=== PATIENT | male | born 1960 | race Hispanic/Latino ===

== ENCOUNTER 2017-01-19 23:02 | Emergency (ER) | payer SELFPAY | END 2017-01-20 07:40 | disposition left against medical advice (07) | LOC: ED 23:02 | DX: Z02.89 Encounter for other administrative examinations (principal); F10.10 Alcohol abuse, uncomplicated ==

== ENCOUNTER 2017-02-24 16:43 | Inpatient (IN) | payer MEDICAID, OTHER ==
[2017-02-24 16:46] VITALS: BMI 32.1
[2017-02-24 17:33] LABS: ADD MANUAL DIFF? NO
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
[2017-02-24 17:46] LABS: BASO # 0.01 K/mm3 (0.0-2.0); BASO % 0.1 % (0.0-3.0); EOS % 0.1 % (1.5-5.0); GRAN # 4.52 (1.4-6.5); GRAN % 64.2 % (50.0-68.0); LYMPH % 28.5 % (22.0-35.0); MEAN CELL VOLUME 94.6 fL (80.0-105.0); MEAN CORPUSCULAR HEMOGLOBIN 32.7 pg (25.0-35.0); MEAN CORPUSCULAR HGB CONC 34.5 g/dl (31.0-37.0); MEAN PLATELET VOLUME 10.4 fl (7.0-11.0); MONO # 0.5 (0.1-0.6); MONO % 7.1 % (1.0-6.0); PLATELET COUNT 123 10^3/uL (120.0-450.0); RED CELL DISTRIBUTION WIDTH 13.2 % (11.5-14.5); WHITE BLOOD COUNT 7.1 10^3/ul (4.5-11.0)
[2017-02-24 17:52] LABS: ALB/GLOB RATIO 1.2 (1.1-1.8); ALKALINE PHOSPHATASE 101 U/L (38-133); ALT/SGPT 74 U/L (7-56); AST/SGOT 71 U/L (15-59); BILIRUBIN,TOTAL 1.6 mg/dL (0.2-1.3); BLOOD UREA NITROGEN 12 mg/dL (7-21); CALCIUM 9.5 mg/dL (8.4-10.5); CARBON DIOXIDE 21 mmol/L (21-33); CHLORIDE 98 mmol/L (98-107); GFR AFRICAN-AMERICAN > 60; GLUCOSE,RANDOM 133 mg/dL (70-110); MAGNESIUM 1.8 mg/dL (1.7-2.2); PHOSPHOROUS 3.6 mg/dL (2.5-4.5); POTASSIUM 3.2 mmol/L (3.6-5.0); SODIUM 135 mmol/L (132-148); TOTAL PROTEIN 8.2 g/dL (5.8-8.3)
[2017-02-24 17:53] LABS: INR 1.06 (0.93-1.08)
[2017-02-24 18:03] LABS: TROPONIN I < 0.01 ng/mL
[2017-02-24] MEDS ORDERED: Potassium Chloride 20 mEq ER Tab PO STA (18:20)
[2017-02-24 19:10] LABS: PH,URINE 5.5 (4.7-8.0); URINE APPEARANCE SL CLOUDY (CLEAR); URINE BILIRUBIN NEGATIVE (NEGATIVE); URINE BLOOD MODERATE (NEGATIVE); URINE COLOR YELLOW (YELLOW); URINE GLUCOSE (UA) NEGATIVE (NEGATIVE); URINE KETONE 40 mg/dL (NEGATIVE); URINE LEUKOCYTE ESTERASE NEGATIVE Leu/uL (NEGATIVE); URINE PROTEIN 100 mg/dL (<30 mg/dL); URINE UROBILINOGEN 0.2 E.U./dL (<1 E.U./dL)
[2017-02-24 19:20] LABS: URINE WBC 0 - 2 /hpf (0-6)
[2017-02-24 19:21] LABS: URINE BACTERIA MOD (NEG); URINE EPITHELIAL CELLS 0 - 2 /hpf (0-5)
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
[2017-02-24] MEDS ORDERED: Morphine 4 mg/ml ISec IVP STA ×2 (20:19→22:10)
[2017-02-24] MEDS ORDERED: oxyCODONE 5 mg Immediate Release Tab PO PRN (22:10)
[2017-02-24] MEDS ORDERED: Morphine 2 mg/ml ISec IVP PRN (22:11)
[2017-02-24] MEDS ORDERED: Magnesium Sulfate 2 GM in Sodium Chloride 0.9% 100 ML IVPB ONE (22:15)
[2017-02-24] MEDS ORDERED: Sodium Chloride 0.45% 1,000 ML IV SCH (22:30)
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
[2017-02-25 06:03] LABS: ADD MANUAL DIFF? NO
[2017-02-25 06:35] LABS: ALB/GLOB RATIO 1.3 (1.1-1.8); ALKALINE PHOSPHATASE 62 U/L (38-133); ALT/SGPT 67 U/L (7-56); AST/SGOT 53 U/L (15-59); BILIRUBIN,TOTAL 1.2 mg/dL (0.2-1.3); BLOOD UREA NITROGEN 10 mg/dL (7-21); CALCIUM 8.7 mg/dL (8.4-10.5); CARBON DIOXIDE 27 mmol/L (21-33); CHLORIDE 99 mmol/L (95-110); GFR AFRICAN-AMERICAN > 60; GLUCOSE,RANDOM 106 mg/dL (70-110); POTASSIUM 4.1 mmol/L (3.6-5.0); SODIUM 131 mmol/L (132-148); TOTAL PROTEIN 6.5 g/dL (5.8-8.3)
[2017-02-25 06:41] LABS: BASO # 0.01 K/mm3 (0.0-2.0); BASO % 0.1 % (0.0-3.0); GRAN # 8.17 (1.4-6.5); GRAN % 87.1 % (50.0-68.0); HEMATOCRIT 39.2 % (42.0-52.0); LYMPH # 0.7 (1.2-3.4); LYMPH % 7.9 % (22.0-35.0); MEAN CELL VOLUME 92.7 fL (80.0-105.0); MEAN CORPUSCULAR HEMOGLOBIN 32.2 pg (25.0-35.0); MEAN CORPUSCULAR HGB CONC 34.7 g/dl (31.0-37.0); MEAN PLATELET VOLUME 10.4 fl (7.0-11.0); MONO # 0.5 (0.1-0.6); MONO % 4.9 % (1.0-6.0); PLATELET COUNT 91 10^3/uL (120.0-450.0); RED CELL DISTRIBUTION WIDTH 13.5 % (11.5-14.5); WHITE BLOOD COUNT 9.4 10^3/ul (4.5-11.0)
[2017-02-25] MEDS: Pantoprazole 40 mg EC Tab PO SCH (08:21)
--- NOTE | 2017-02-25 08:45 | RAD ---
PROCEDURE: CHEST RADIOGRAPH, 1 VIEW HISTORY: cough COMPARISON: 10/26/2015 FINDINGS: LUNGS: Clear. PLEURA: No pneumothorax or pleural fluid seen. CARDIOVASCULAR: Normal. OSSEOUS STRUCTURES: No significant abnormalities. VISUALIZED UPPER ABDOMEN: Normal. OTHER FINDINGS: None. IMPRESSION: No active disease.
[2017-02-25] MEDS ORDERED: Multivitamin With Minerals Tab PO SCH (10:00)
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
--- NOTE | 2017-02-25 13:23 | CARD ---
APPROVED REPORT EKG Measurement Heart [id number] <Conclusion> Normal sinus rhythm with 1st degree AVB Left axis deviation, LAHB Right bundle branch block Trifasicular block
--- NOTE | 2017-02-25 18:35 | EEG ---
DATE: 02/25/2017 CONDITION ON RECORDING: Awake. DIAGNOSIS: Seizure. MEDICATIONS: Reviewed via nurse's reconciliation sheet. INTERPRETATION: This is a 16-channel international recording. The background activity was composed of 6-7 cycles per second. There was increased amount of beta activity of 16-20 cycles per second see n in this recording. There was also increased amount of theta activity 5-7 cycles per second seen in this tracing. Drowsiness was characterized by mixed theta activity. The sleep was characterized by vertex transient waves, sleep spindles and bilateral slowing. Photic stimulation showed no change i n the tracing. No paroxysmal activity noted in this recording. CONCLUSION: Abnormal electroencephalogram due to presence of mild diffuse slowing throughout the EEG with underlying beta activity consistent with mild bilateral cerebral dysfunction. No evidence of a ny epileptiform activity. Please clinically correlate. Guevara Worthington MD cc: [id number] TT: 02/25/2017 18:35:06 Confirmation # [id number] Dictation # [id number] dn
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
[2017-02-25] MEDS: THIAMINE IV SCH (21:06)
[2017-02-25] MEDS: FOLIC ACID IV SCH (21:06)
[2017-02-25] MEDS: [UNRECOGNIZED DRUG - OTHER] IV SCH (21:06)
[2017-02-25] MEDS: MULTIVITAMIN IV SCH (21:06)
[2017-02-26] MEDS: MULTIVITAMIN IV SCH ×2 (05:30→18:41)
[2017-02-26] MEDS: THIAMINE IV SCH ×2 (05:30→18:41)
[2017-02-26] MEDS: FOLIC ACID IV SCH ×2 (05:30→18:41)
[2017-02-26] MEDS: [UNRECOGNIZED DRUG - OTHER] IV SCH ×2 (05:30→18:41)
[2017-02-26 07:40] LABS: HEMATOCRIT 40.7 % (42.0-52.0); MEAN CELL VOLUME 93.3 fL (80.0-105.0); MEAN CORPUSCULAR HEMOGLOBIN 32.1 pg (25.0-35.0); MEAN CORPUSCULAR HGB CONC 34.4 g/dl (31.0-37.0); MEAN PLATELET VOLUME 9.8 fl (7.0-11.0); RED CELL DISTRIBUTION WIDTH 13.6 % (11.5-14.5); WHITE BLOOD COUNT 5.3 10^3/ul (4.5-11.0)
[2017-02-26 07:53] LABS: ALB/GLOB RATIO 1.1 (1.1-1.8); ALKALINE PHOSPHATASE 55 U/L (38-133); ALT/SGPT 50 U/L (7-56); AST/SGOT 48 U/L (15-59); BILIRUBIN,TOTAL 1.4 mg/dL (0.2-1.3); BLOOD UREA NITROGEN 9 mg/dL (7-21); CALCIUM 8.8 mg/dL (8.4-10.5); CARBON DIOXIDE 25 mmol/L (21-33); CHLORIDE 103 mmol/L (95-110); GFR AFRICAN-AMERICAN > 60; GLUCOSE,RANDOM 87 mg/dL (70-110); POTASSIUM 3.4 mmol/L (3.6-5.0); SODIUM 135 mmol/L (132-148); TOTAL PROTEIN 7.2 g/dL (5.8-8.3)
[2017-02-26] MEDS: Pantoprazole 40 mg EC Tab PO SCH (08:45)
--- NOTE | 2017-02-26 09:22 | CARD ---
APPROVED REPORT EXAM: Two-dimensional and M-mode echocardiogram with Doppler and color Doppler. Other Information Quality : AverageRhythm : INDICATION Syncope 2D DIMENSIONS Left Atrium (2D)4.0 (1.6-4.0cm)IVSd1.1 (0.7-1.1cm) LVDd4.9 (3.9-5.9cm)PWd1.1 (0.7-1.1cm) LVDs3.4 (2.5-4.0cm)FS (%) 30.6 % LVEF (%)57.0 (>50%) M-Mode DIMENSIONS Aortic Root3.10 (2.2-3.7cm)Aortic Cusp Exc.1.90 (1.5-2.0cm) Aortic Valve AoV Peak Ocqfywqf727.0cm/s Mitral Valve MV E Aqxmgwof51.8cm/sMV A Oputangc20.3cm/sE/A ratio0.8 TDI E/Lateral E'0.0E/Medial E'0.0 Tricuspid Valve TR Peak Rzwtvati113qi/sRAP [id number] Peak Gr.6mmHg [id number] LEFT VENTRICLE The left ventricle is normal size. There is normal left ventricular wall thickness. The left ventricular function is normal. The left ventricular ejection fraction is within the normal range. There is normal LV segmental wall motion. RIGHT VENTRICLE The right ventricle is normal size. AORTIC VALVE The aortic valve is normal in structure. There is trace aortic regurgitation. MITRAL VALVE The mitral valve is normal in structure. Mitral regurgitation is trace. TRICUSPID VALVE The tricuspid valve is normal in structure. There is mild tricuspid regurgitation. PULMONIC VALVE The pulmonic valve is not well visualized. GREAT VESSELS The aortic root is normal in size. PERICARDIAL EFFUSION There is no pericardial effusion. <Conclusion> The left ventricle is normal size. There is normal left ventricular wall thickness. The left ventricular function is normal.
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
--- NOTE | 2017-02-27 01:12 | CP.PCM.PN ---
Subjective - Date & Time of Evaluation Date of Evaluation: 02/27/17 Time of Evaluation: 01:11 - Subjective Subjective: # 20 angiocath was inserted in left forearm. Dx:Poor venous access. Objective - Vital Signs/Intake and Output Vital Signs (last 24 hours): Temp Pulse Resp BP Pulse Ox 98.2 F 94 H 18 121/89 94 L 02/26/17 12:00 02/26/17 22:00 02/26/17 12:00 02/26/17 12:00 02/26/17 07:05 Intake and Output: 02/26/17 02/27/17 18:59 06:59 Intake Total 2260 Output Total 1900 Balance 360 - Medications Medications: Current Medications Famotidine (Pepcid) 40 mg PO HS [facility] Thiamine HCl 100 mg/ Folic Acid 1 mg/ Multivitamins/Vitamin C 10 ml/ Sodium Chloride 1,011.2 mls @ 100 mls/hr IV .Q10H7M [facility] Last Admin: 02/26/17 18:41 Dose: Not Given Lorazepam (Ativan) 2 mg PO QID [facility] PRN Reason: Protocol Last Admin: 02/26/17 22:25 Dose: 2 mg Lorazepam (Ativan) 2 mg IVP Q6H PRN; Protocol PRN Reason: alcohol withdrawal/agitation Last Admin: 02/26/17 22:45 Dose: 2 mg Morphine Sulfate (Morphine) 2 mg IVP Q4 PRN PRN Reason: Pain, severe (8-10) Last Admin: 02/25/17 02:17 Dose: 2 mg Nicotine (Nicoderm Cq) 1 patch TD DAILY [facility] Last Admin: 02/26/17 11:13 Dose: 1 patch Oxycodone HCl (Oxycodone Immediate Release Tab) 5 mg PO Q4 PRN PRN Reason: Pain, moderate (4-7) Quetiapine Fumarate (Seroquel) 50 mg PO [facility] PRN Reason: Protocol Last Admin: 02/26/17 21:27 Dose: 50 mg Ziprasidone (Geodon Inj) 10 mg IM Q8H PRN; Protocol PRN Reason: Agitation/psychosis Last Admin: 02/26/17 22:46 Dose: 10 mg - Labs Labs: 02/26/17 07:00 02/26/17 07:00 PT 11.4 Seconds (9.9-11.8) 02/24/17 17:00 INR 1.06 (0.93-1.08) 02/24/17 17:00 APTT 27.0 Seconds (23.7-30.8) 02/24/17 17:00
[2017-02-27] MEDS: THIAMINE IV SCH ×6 (02:03→23:49)
[2017-02-27] MEDS: [UNRECOGNIZED DRUG - OTHER] IV SCH ×6 (02:03→23:49)
[2017-02-27] MEDS: FOLIC ACID IV SCH ×6 (02:03→23:49)
[2017-02-27] MEDS: MULTIVITAMIN IV SCH ×6 (02:03→23:49)
[2017-02-27 06:51] LABS: ALB/GLOB RATIO 1.1 (1.1-1.8); ALKALINE PHOSPHATASE 57 U/L (38-133); ALT/SGPT 48 U/L (7-56); AST/SGOT 49 U/L (15-59); BILIRUBIN,TOTAL 1.4 mg/dL (0.2-1.3); BLOOD UREA NITROGEN 9 mg/dL (7-21); CALCIUM 9.4 mg/dL (8.4-10.5); CARBON DIOXIDE 26 mmol/L (21-33); CHLORIDE 103 mmol/L (98-107); GFR AFRICAN-AMERICAN > 60; GLUCOSE,RANDOM 96 mg/dL (70-110); POTASSIUM 3.7 mmol/L (3.6-5.0); SODIUM 136 mmol/L (132-148); TOTAL PROTEIN 7.4 g/dL (5.8-8.3)
[2017-02-27 07:00] LABS: HEMATOCRIT 42.8 % (42.0-52.0); MEAN CELL VOLUME 93.4 fL (80.0-105.0); MEAN CORPUSCULAR HEMOGLOBIN 32.8 pg (25.0-35.0); MEAN PLATELET VOLUME 10.2 fl (7.0-11.0); RED CELL DISTRIBUTION WIDTH 13.6 % (11.5-14.5); WHITE BLOOD COUNT 5.7 10^3/ul (4.5-11.0)
--- NOTE | 2017-02-27 09:27 | CP.PCM.PCO ---
Addendum Addendum: Patient sedated at time of visit this morning. He had a difficult night and required prns for agitation. Staff notes indicate he was restless, verbally abusive, trying to climb out of bed and disoriented. He refused vitals and initially refused IV insertion. Based on these staff notes, patient clearly appears delirious. Psychiatry will continue to assess his mental status along with his medical team.
--- NOTE | 2017-02-27 10:19 | MRI ---
PROCEDURE: MR LUMBAR SPINE WITHOUT CONTRAST HISTORY: compression fracture COMPARISON: None available. TECHNIQUE: Multiecho multiplanar sequences were performed through the lumbar spine without the use of intravenous contrast. Somewhat limited evaluation due to artifact from patient motion. FINDINGS: There is straightening of the normal lumbar lordosis likely from muscle spasm or patient positioning. Compressive deformities particularly of the superior endplates of T12, L3, L4 and L5 noted. Stir images demonstrate acute bone marrow edema in these levels. There is a small retropulsed component posterior to the L4 vertebral body. Disc desiccation involving L1-L2, L2-L3, L3-4. Heterogeneous marrow signal. Conus medullaris unremarkable at the level of L1. Paraspinal soft tissues are unremarkable. T12-L1: No disc herniation, spinal canal stenosis or neural foraminal narrowing. L1-2: Broad-based posterior disc herniation. Superimposed facet and ligamentum flavum hypertrophy has mildly narrowed bilateral neural foramen. L2-3: Small broad-based posterior disc herniation with mild narrowing of the lateral recesses. L3-4: Concentric disc bulge. Significantly narrowed the spinal canal. Superimposed facet and ligamentum flavum hypertrophy has lead to moderate to severe narrowing of bilateral neural foramen. L4-5: Facet and ligamentum flavum hypertrophy has lead to severe narrowing of the spinal canal. (suboptimal evaluation at this level due to extensive patient motion.) L5-S1: Mild posterior broad-based disc bulge. Mild narrowing of the neural foramen bilaterally. OTHER FINDINGS: Heterogeneous bone marrow edema in bilateral sacral ala. IMPRESSION: Acute compression fractures involving T12, L3, L4 and L5 with bone marrow edema. Other degenerative changes as above. Please note that this report is in general agreement with the preliminary report provided by [facility].
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
[2017-02-28 07:14] LABS: MEAN CELL VOLUME 94.3 fL (80.0-105.0); MEAN CORPUSCULAR HGB CONC 33.9 g/dl (31.0-37.0); MEAN PLATELET VOLUME 9.8 fl (7.0-11.0); RED CELL DISTRIBUTION WIDTH 13.6 % (11.5-14.5); WHITE BLOOD COUNT 5.2 10^3/ul (4.5-11.0)
[2017-02-28 07:31] LABS: ALKALINE PHOSPHATASE 56 U/L (38-133); ALT/SGPT 48 U/L (7-56); AST/SGOT 46 U/L (15-59); BILIRUBIN,TOTAL 1.1 mg/dL (0.2-1.3); BLOOD UREA NITROGEN 9 mg/dL (7-21); CARBON DIOXIDE 26 mmol/L (21-33); CHLORIDE 104 mmol/L (98-107); GFR AFRICAN-AMERICAN > 60; GLUCOSE,RANDOM 103 mg/dL (70-110); POTASSIUM 3.5 mmol/L (3.6-5.0); SODIUM 138 mmol/L (132-148); TOTAL PROTEIN 7.1 g/dL (5.8-8.3)
[2017-02-28] MEDS ORDERED: Potassium Chloride 20 mEq ER Tab PO ONE (07:47)
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
[2017-02-28] MEDS: Multivitamin With Minerals Tab PO SCH (10:56)
--- NOTE | 2017-02-28 12:19 | MRI ---
PROCEDURE: MR THORACIC SPINE WITHOUT CONTRAST HISTORY: compression fracture COMPARISON: MRI of the lumbar spine same day TECHNIQUE: Multiecho multiplanar sequences were performed through the thoracic spine without the use of intravenous contrast. FINDINGS: ALIGNMENT: Normal thoracic spinal alignment. Normal thoracic kyphosis. VERTEBRA: There is a mild compression fracture with marrow edema at T12. There are no other fractures seen in the thoracic spine MARROW: Marrow edema T12 PARASPINAL SOFT TISSUES: Unremarkable. CORD: Unremarkable thoracic cord. No volume loss, signal abnormality or syrinx. DISCS: No disc herniation, spinal canal stenosis, or neuroforaminal narrowing. OTHER FINDINGS: The report concurs with the preliminary [facility] report IMPRESSION: Mild acute compression fracture T12
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
[2017-03-01 08:19] LABS: ADD MANUAL DIFF? NO
[2017-03-01 08:23] LABS: BASO # 0.01 K/mm3 (0.0-2.0); BASO % 0.2 % (0.0-3.0); EOS # 0.1 (0.0-0.7); EOS % 2.7 % (1.5-5.0); GRAN % 53.2 % (50.0-68.0); HEMATOCRIT 42.7 % (42.0-52.0); LYMPH # 1.4 (1.2-3.4); LYMPH % 28.5 % (22.0-35.0); MEAN CELL VOLUME 93.8 fL (80.0-105.0); MEAN CORPUSCULAR HEMOGLOBIN 32.5 pg (25.0-35.0); MEAN CORPUSCULAR HGB CONC 34.7 g/dl (31.0-37.0); MEAN PLATELET VOLUME 9.6 fl (7.0-11.0); MONO # 0.8 (0.1-0.6); MONO % 15.4 % (1.0-6.0); PLATELET COUNT 133 10^3/uL (120.0-450.0); RED CELL DISTRIBUTION WIDTH 13.7 % (11.5-14.5); WHITE BLOOD COUNT 4.9 10^3/ul (4.5-11.0)
[2017-03-01 08:39] LABS: ALB/GLOB RATIO 1.1 (1.1-1.8); ALKALINE PHOSPHATASE 63 U/L (38-133); ALT/SGPT 48 U/L (7-56); AST/SGOT 42 U/L (15-59); BILIRUBIN,TOTAL 1.2 mg/dL (0.2-1.3); BLOOD UREA NITROGEN 11 mg/dL (7-21); CALCIUM 9.6 mg/dL (8.4-10.5); CARBON DIOXIDE 26 mmol/L (21-33); CHLORIDE 101 mmol/L (98-107); GFR AFRICAN-AMERICAN > 60; GLUCOSE,RANDOM 99 mg/dL (70-110); POTASSIUM 3.9 mmol/L (3.6-5.0); SODIUM 136 mmol/L (132-148); TOTAL PROTEIN 7.5 g/dL (5.8-8.3)
[2017-03-01] MEDS: Multivitamin With Minerals Tab PO SCH (09:21)
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
[2017-03-02 07:16] LABS: ADD MANUAL DIFF? NO
[2017-03-02 07:31] LABS: BASO # 0.02 K/mm3 (0.0-2.0); BASO % 0.3 % (0.0-3.0); EOS # 0.1 (0.0-0.7); EOS % 1.7 % (1.5-5.0); GRAN # 3.44 (1.4-6.5); GRAN % 58.6 % (50.0-68.0); HEMATOCRIT 43.1 % (42.0-52.0); LYMPH # 1.4 (1.2-3.4); LYMPH % 24.3 % (22.0-35.0); MEAN CELL VOLUME 92.7 fL (80.0-105.0); MEAN CORPUSCULAR HEMOGLOBIN 32.3 pg (25.0-35.0); MEAN CORPUSCULAR HGB CONC 34.8 g/dl (31.0-37.0); MONO # 0.9 (0.1-0.6); MONO % 15.1 % (1.0-6.0); PLATELET COUNT 154 10^3/uL (120.0-450.0); RED CELL DISTRIBUTION WIDTH 13.5 % (11.5-14.5); WHITE BLOOD COUNT 5.9 10^3/ul (4.5-11.0)
[2017-03-02 07:36] LABS: ALB/GLOB RATIO 1.1 (1.1-1.8); ALKALINE PHOSPHATASE 63 U/L (38-133); ALT/SGPT 49 U/L (7-56); AST/SGOT 45 U/L (15-59); BILIRUBIN,TOTAL 1.1 mg/dL (0.2-1.3); BLOOD UREA NITROGEN 12 mg/dL (7-21); CALCIUM 9.7 mg/dL (8.4-10.5); CARBON DIOXIDE 28 mmol/L (21-33); CHLORIDE 101 mmol/L (98-107); GFR AFRICAN-AMERICAN > 60; GLUCOSE,RANDOM 99 mg/dL (70-110); SODIUM 136 mmol/L (132-148); TOTAL PROTEIN 7.5 g/dL (5.8-8.3)
[2017-03-02] MEDS: Multivitamin With Minerals Tab PO SCH (09:14)
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
[2017-03-02 20:03] VITALS: BP 115/81; PULSE 95; RESP 18; TEMP 97.7; O2SAT 96
[2017-03-04 13:19] LABS: ALB/GLOB RATIO 1.1 (1.1-1.8); BILIRUBIN,TOTAL 1.1 mg/dL (0.2-1.3); BLOOD UREA NITROGEN 13 mg/dL (7-21); CALCIUM 9.7 mg/dL (8.4-10.5); CARBON DIOXIDE 27 mmol/L (21-33); CHLORIDE 100 mmol/L (98-107); GFR AFRICAN-AMERICAN > 60; GLUCOSE,RANDOM 91 mg/dL (70-110); SODIUM 136 mmol/L (132-148); TOTAL PROTEIN 7.6 g/dL (5.8-8.3)
[2017-03-04 13:20] LABS: ALKALINE PHOSPHATASE 69 U/L (38-133); ALT/SGPT 53 U/L (7-56); AST/SGOT 72 U/L (15-59)
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
[2017-03-04 16:20] LABS: HEMATOCRIT 43.1 % (42.0-52.0); MEAN CELL VOLUME 92.7 fL (80.0-105.0); MEAN CORPUSCULAR HEMOGLOBIN 32.5 pg (25.0-35.0); RED CELL DISTRIBUTION WIDTH 13.3 % (11.5-14.5); WHITE BLOOD COUNT 5.4 10^3/ul (4.5-11.0)
== END 2017-03-03 16:20 | disposition home or self-care (01) | DRG 561 ==
LOC: ED 16:43 → ERH 21:55 → 2RNO 02-25 01:39 → 3RNO 02-28 18:19
PROVIDERS: ADMIT Hospitalist; ATTEND Internal Medicine
DX: M48.54XA Collapsed vertebra, not elsewhere classified, thoracic region, initial encounter for fracture (principal); R40.20 Unspecified coma; F10.231 Alcohol dependence with withdrawal delirium; F05 Delirium due to known physiological condition; R56.9 Unspecified convulsions; M48.04 Spinal stenosis, thoracic region; M48.56XA Collapsed vertebra, not elsewhere classified, lumbar region, initial encounter for fracture; E87.6 Hypokalemia; M48.06 Spinal stenosis, lumbar region; G89.29 Other chronic pain; F17.210 Nicotine dependence, cigarettes, uncomplicated; R40.2412 Glasgow coma scale score 13-15, at arrival to emergency department; R55 Syncope and collapse; V43.02XA Car driver injured in collision with other type car in nontraffic accident, initial encounter; Y92.410 Unspecified street and highway as the place of occurrence of the external cause

== ENCOUNTER 2017-04-25 16:25 | Inpatient (IN) | payer MEDICAID, OTHER ==
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
[2017-04-25 18:08] LABS: BASO # 0.01 K/mm3 (0.0-2.0); BASO % 0.2 % (0.0-3.0); EOS # 0.1 (0.0-0.7); EOS % 1.1 % (1.5-5.0); GRAN # 3.25 (1.4-6.5); GRAN % 57.5 % (50.0-68.0); HEMOGLOBIN 13.7 gm/dL (14.0-18.0); LYMPH # 1.9 (1.2-3.4); LYMPH % 32.9 % (22.0-35.0); MEAN CELL VOLUME 92.7 fL (80.0-105.0); MEAN CORPUSCULAR HEMOGLOBIN 32.2 pg (25.0-35.0); MEAN CORPUSCULAR HGB CONC 34.7 g/dl (31.0-37.0); MEAN PLATELET VOLUME 10.1 fl (7.0-11.0); MONO # 0.5 (0.1-0.6); MONO % 8.3 % (1.0-6.0); PLATELET COUNT 176 10^3/uL (120.0-450.0); RBC 4.26 10^6/uL (3.5-6.1); RED CELL DISTRIBUTION WIDTH 13.5 % (11.5-14.5); WHITE BLOOD COUNT 5.7 10^3/ul (4.5-11.0)
[2017-04-25 18:24] LABS: ALB/GLOB RATIO 1.3 (1.1-1.8); ALBUMIN 3.7 g/dL (3.0-4.8); ALT/SGPT 32 U/L (7-56); AST/SGOT 30 U/L (15-59); BLOOD UREA NITROGEN 7 mg/dL (7-21); CALCIUM 9.7 mg/dL (8.4-10.5); GFR AFRICAN-AMERICAN > 60; GFR NON-AFRICAN AMERICAN > 60
--- NOTE | 2017-04-25 19:33 | CARD ---
APPROVED REPORT EKG Measurement Heart [id number] <Conclusion> Normal sinus rhythm Right bundle branch block Abnormal ECG
[2017-04-26 01:04] VITALS: BMI 24.8
--- NOTE | 2017-04-26 08:18 | RAD ---
PROCEDURE: Radiographs of the pelvis. HISTORY: leg pain, unable to ambulate COMPARISON: None. FINDINGS: BONES: Pelvic Bones: Unremarkable. Hips: Severe degenerative changes are seen in the left hip with joint space narrowing bony sclerosis and osteophyte formation. There is a variation in the shape of the femoral neck bilaterally which is associated with femoro acetabular impingement JOINTS: Sacroiliac Joints: Unremarkable. Pubic Symphysis: Unremarkable. OTHER FINDINGS: None. IMPRESSION: Severe degenerative changes are seen in the left hip with joint space narrowing bony sclerosis and osteophyte formation. There is a variation in the shape of the femoral neck bilaterally which is associated with femoro acetabular impingement
--- NOTE | 2017-04-26 08:22 | RAD ---
HISTORY: ambulation failure COMPARISON: No prior. FINDINGS: LUNGS: No active pulmonary disease. PLEURA: No significant pleural effusion identified, no pneumothorax apparent. CARDIOVASCULAR: Normal. OSSEOUS STRUCTURES: No significant abnormalities. VISUALIZED UPPER ABDOMEN: Normal. OTHER FINDINGS: None. IMPRESSION: No active disease.
--- NOTE | 2017-04-26 08:22 | RAD ---
PROCEDURE: Radiographs of the bilateral femurs. HISTORY: leg pain, unable to ambulate COMPARISON: None. FINDINGS: BONES: Right Femur: Normal. No fracture. Left Femur: Normal. No fracture. SOFT TISSUES: Right Femur: Normal. Left Femur: Normal. OTHER FINDINGS: Severe degenerative changes in the left hip. IMPRESSION: No acute finding
[2017-04-26 09:12] LABS: ALB/GLOB RATIO 1.2 (1.1-1.8); ALBUMIN 3.4 g/dL (3.0-4.8); ALT/SGPT 31 U/L (7-56); AST/SGOT 27 U/L (15-59); BLOOD UREA NITROGEN 8 mg/dL (7-21); CALCIUM 9.5 mg/dL (8.4-10.5); GFR AFRICAN-AMERICAN > 60; GFR NON-AFRICAN AMERICAN > 60; MAGNESIUM 1.7 mg/dL (1.7-2.2)
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
[2017-04-27] MEDS ORDERED: Gadodiamide 287 MG/ML VIAL (15ML) IV ONE (10:55)
--- NOTE | 2017-04-27 13:47 | MRI ---
PROCEDURE: MR LUMBAR SPINE WITH AND WITHOUT CONTRAST HISTORY: lumbar raiduclopathy COMPARISON: 02/26/2017 TECHNIQUE: Multiecho multiplanar sequences were performed through the lumbar spine with and without the use of intravenous contrast. FINDINGS: Normal lumbar lordosis. Vertebral compression fractures with marrow edema and enhancement are again identified at T12, L4 and L5. Conus medullaris unremarkable at the level of Paraspinal soft tissues are unremarkable. No abnormal enhancement. T12-L1: No disc herniation, spinal canal stenosis or neural foraminal narrowing. L1-2: Mild to moderate disc bulge L2-3: Moderate symmetrical disc bulge L3-4: Disc bulge and facet arthropathy with severe central stenosis. Image 28 series 7 L4-5: Disc bulge and facet arthropathy with severe spinal stenosis. Image 8 series 6 L5-S1: Mild facet arthropathy OTHER FINDINGS: None. IMPRESSION: Recent compression fractures at T12-L4 and L5 with marrow edema and enhancement. Findings similar to prior study. Severe spinal stenosis at L3-4 and L4-5
--- NOTE | 2017-04-27 14:11 | CP.PCM.PCO ---
Assessment & Plan - Assessment and Plan (Free Text) Assessment: NEURO COMMUNICATION NOTE: MRI LS SPINE REVIEWED: HE HAS COMPRESSION FRACTURES T12, L3, L4 and L5 SIMILAR TO PREVIOUS MRI LS SPINE ON 03/02 AND NOW WITH SERVERE SPINAL STENOSIS AT L3-L4, L4-5. RECOMMEND: LYRICA 75 MG PO TID FOR NEUROPATHIC RELIEF, PHYSICAL THERAPY, [facility], AND NEUROSURGICAL EVALUATION FOR SEVERE SPINAL STENOSIS DUE TO WEAKNESS OF HIS LEGS FROM RADICULAR PAIN.. THX. [place]
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
[2017-04-28] MEDS: Morphine 2 mg/ml ISec IVP PRN ×2 (06:49→19:47)
[2017-04-28] MEDS ORDERED: Multivitamin With Minerals Tab PO SCH (08:00)
[2017-04-28 08:55] LABS: ALBUMIN (PEP) 3.2 g/dL (3.8-4.8); ALPHA-1-GLOBULIN (PEP) 0.3 g/dL (0.2-0.3)
[2017-04-28 09:34] LABS: HEMOGLOBIN 14.1 gm/dL (14.0-18.0); MEAN CELL VOLUME 95.3 fL (80.0-105.0); MEAN CORPUSCULAR HEMOGLOBIN 31.6 pg (25.0-35.0); MEAN CORPUSCULAR HGB CONC 33.2 g/dl (31.0-37.0); RBC 4.46 10^6/uL (3.5-6.1); RED CELL DISTRIBUTION WIDTH 13.8 % (11.5-14.5); WHITE BLOOD COUNT 5.4 10^3/ul (4.5-11.0)
[2017-04-28 09:44] LABS: ALB/GLOB RATIO 1.3 (1.1-1.8); ALT/SGPT 31 U/L (7-56); AST/SGOT 26 U/L (15-59); BLOOD UREA NITROGEN 7 mg/dL (7-21); CALCIUM 9.9 mg/dL (8.4-10.5); GFR AFRICAN-AMERICAN > 60; GFR NON-AFRICAN AMERICAN > 60
--- NOTE | 2017-04-28 13:45 | CP.PCM.CON ---
History of Present Illness - History of Present Illness History of Present Illness: SPINE CONSULT Pt seen and examined. Full consult dictated. Rec decompressive laminectomy to alleviate severe spinal stenosis. Tent sched for tomorrow. Past Patient History - Infectious Disease Hx of Infectious Diseases: None - Past Social History Smoking Status: Current Some Days Smoker - NEUROLOGICAL Hx Seizures: Yes - MUSCULOSKELETAL/RHEUMATOLOGICAL Hx Falls: Yes Hx Unsteady Gait: Yes - PSYCHIATRIC Hx Substance Use: No - SURGICAL HISTORY Hx Joint Replacement: Yes (KNEE REPLACEMENT) - ANESTHESIA Hx Anesthesia: Yes Hx Anesthesia Reactions: No Hx Malignant Hyperthermia: No Meds Allergies/Adverse Reactions: Allergies Allergy/AdvReac Type Severity Reaction Status Date / Time No Known Allergies Allergy Verified 10/08/15 21:13 - Medications Medications: Current Medications Famotidine (Pepcid) 40 mg PO HS PRN PRN Reason: GI distress Folic Acid (Folic Acid) 1 mg PO DAILY [facility] Last Admin: 04/28/17 09:14 Dose: 1 mg Morphine Sulfate (Morphine) 2 mg IVP Q4H PRN PRN Reason: Pain, severe (8-10) Last Admin: 04/28/17 06:49 Dose: 2 mg Multivitamins/Minerals (Therapeutic-M Tab) 1 tab PO 0800 [facility] Last Admin: 04/28/17 09:14 Dose: 1 tab Pregabalin (Lyrica) 75 mg PO TID [facility] Last Admin: 04/28/17 09:14 Dose: 75 mg Thiamine HCl (Vitamin B1 Tab) 100 mg PO DAILY [facility] Last Admin: 04/28/17 09:14 Dose: 100 mg Results - Vital Signs Recent Vital Signs: Last Vital Signs Temp 97.8 F 04/28/17 08:33 Pulse 59 L 04/28/17 08:33 Resp 18 04/28/17 08:33 BP 93/64 L 04/28/17 08:33 Pulse Ox 98 04/28/17 08:33 - Labs Result Diagrams: 04/28/17 09:29 04/28/17 09:29 Labs: Laboratory Results - last 24 hr 04/27/17 04/28/17 04/28/17 06:00 09:29 09:29 WBC 5.4 RBC 4.46 Hgb 14.1 Hct 42.5 MCV 95.3 MCH 31.6 MCHC 33.2 RDW 13.8 Plt Count 183 MPV 10.0 Sodium 140 Potassium 4.1 Chloride 100 Carbon Dioxide 31 Anion Gap 13 BUN 7 Creatinine 0.7 Est GFR ( Amer) > 60 Est GFR (Non-Af Amer) > 60 Random Glucose 111 H Calcium 9.9 Total Bilirubin 0.8 AST 26 ALT 31 Alkaline Phosphatase 60 Total Protein 7.1 Total Protein (PEP) 5.7 L Albumin 4.0 Albumin (PEP) 3.2 L Globulin 3.1 Albumin/Globulin Ratio 1.3 Neqxd-1-Sxanbellh 0.3 Zonbj-1-Vwrcvblrq 0.6 Zude-9-Jonblnnr 0.3 L Ntgm-1-Macosnso 0.3 Gamma Globulins 0.9 Abnorm Protein Band 1 TEST NOT PERFORMED Abnorm Protein Band 2 TEST NOT PERFORMED Abnorm Protein Band 3 TEST NOT PERFORMED KRYSTAL & SPEP Interp See note
--- NOTE | 2017-04-28 14:58 | CARD ---
APPROVED REPORT EXAM: Two-dimensional and M-mode echocardiogram with Doppler and color Doppler. INDICATION Pre-Op 2D DIMENSIONS Left Atrium (2D)3.7 (1.6-4.0cm)IVSd1.0 (0.7-1.1cm) Aortic Root (2D)3.2 (2.0-3.7cm)LVDd5.2 (3.9-5.9cm) PWd0.9 (0.7-1.1cm)LVDs2.8 (2.5-4.0cm) FS (%) 45.1 %LVEF (%)76.1 (>50%) M-Mode DIMENSIONS Aortic Cusp Exc.2.50 (1.5-2.0cm) Aortic Valve AoV Peak Chungtih357.0cm/Lakia Peak GR.5mmHgAI P 1/2 Lipz718la Mitral Valve MV E Kytkszsq84.7cm/sMV A Jotqnkoj07.6cm/sE/A ratio1.0 TDI Lateral E' Peak V7.12cm/sMedial E' Peak V8.19cm/sE/Lateral E'12.7 E/Medial E'11.1 Pulmonary Valve PV Peak Iihgfgpe24.7cm/sPV Peak Grad.2mmHg LEFT VENTRICLE The left ventricle is normal size. There is mild concentric left ventricular hypertrophy. The left ventricular function is normal.EF-55% There is mild hypokinesis in the apical inferior wall. Transmitral Doppler flow pattern is Grade II-pseudonormal filling dynamics. No left ventricle thrombus noted on this study. There is no ventricular septal defect visualized. There is no left ventricular aneurysm. There is no mass noted in the left ventricle. RIGHT VENTRICLE The right ventricle is normal size. There is normal right ventricular wall thickness. The right ventricular systolic function is normal. ATRIA The left atrium size is normal. The right atrium size is normal. The interatrial septum is intact with no evidence for an atrial septal defect. AORTIC VALVE The aortic valve is thickened but opens well. There is mild to moderate aortic regurgitation. There is no aortic valvular stenosis. There is no aortic valvular vegetation. MITRAL VALVE The mitral valve is thickened but opens well. Mitral regurgitation is mild. There is no mitral valve stenosis. There is no evidence of mitral valve prolapse. TRICUSPID VALVE The tricuspid valve leaflets are thickened , but open well. There is trace tricuspid regurgitation. There is no tricuspid valve stenosis. There is no tricuspid valve prolapse or vegetation. PULMONIC VALVE The pulmonary valve is normal in structure. There is no pulmonic valvular regurgitation. There is no pulmonic valvular stenosis. GREAT VESSELS The aortic root is normal in size. The ascending aorta is normal in size. The pulmonary artery is normal. The IVC is normal in size and collapses >50% with inspiration. PERICARDIAL EFFUSION There is no pleural effusion. There is no pericardial effusion. <Conclusion> Normal chamber Size. EF-55% There is mild to moderate aortic regurgitation. Mitral regurgitation is mild. There is trace tricuspid regurgitation. There is no pericardial effusion. No vegetation or thrombus noted.
[2017-04-28 15:40] LABS: INR 1.03 (0.93-1.08); PARTIAL THROMBOPLASTIN TIME 25.9 Seconds (23.7-30.8); PROTHROMBIN TIME 11.1 Seconds (9.9-11.8)
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
[2017-04-29] MEDS ORDERED: Bacitracin 500 Units/gm Oint Foilpak UD ONE (07:31)
[2017-04-29] MEDS ORDERED: Lidocaine 1%/Epinephrine 1:100000 30 ml vial ONE (07:32)
[2017-04-29] MEDS ORDERED: Absorbable Gelatin Sponge Size 100 ONE (07:32)
[2017-04-29] MEDS ORDERED: Heparin 10,000 Units/ml ONE (07:32)
[2017-04-29] MEDS ORDERED: Thrombin Topical 20,000 Intl Units Spray Kit TOP ONE (07:33)
[2017-04-29] MEDS ORDERED: Propofol 10 mg/ml Inj (20 ML) ONE ×2 (07:38→09:17)
[2017-04-29] MEDS ORDERED: Midazolam 2 MG/2 ML VIAL ONE (07:38)
[2017-04-29] MEDS ORDERED: Rocuronium 10 mg/ml (5 ml) ONE (07:42)
[2017-04-29 07:59] LABS: HEMOGLOBIN 13.3 gm/dL (14.0-18.0); MEAN CELL VOLUME 95.2 fL (80.0-105.0); MEAN CORPUSCULAR HEMOGLOBIN 31.8 pg (25.0-35.0); MEAN CORPUSCULAR HGB CONC 33.4 g/dl (31.0-37.0); MEAN PLATELET VOLUME 10.5 fl (7.0-11.0); RBC 4.18 10^6/uL (3.5-6.1); RED CELL DISTRIBUTION WIDTH 13.8 % (11.5-14.5); WHITE BLOOD COUNT 5.1 10^3/ul (4.5-11.0)
[2017-04-29 08:08] LABS: ALB/GLOB RATIO 1.3 (1.1-1.8); ALBUMIN 3.8 g/dL (3.0-4.8); ALT/SGPT 28 U/L (7-56); AST/SGOT 28 U/L (15-59); BLOOD UREA NITROGEN 13 mg/dL (7-21); CALCIUM 9.7 mg/dL (8.4-10.5); GFR AFRICAN-AMERICAN > 60; GFR NON-AFRICAN AMERICAN > 60
[2017-04-29] MEDS ORDERED: Sevoflurane - Inhalation Anesthetic Liq (250 ml) ONE (08:44)
[2017-04-29] MEDS ORDERED: Neostigmine Methylsulfate 3mg/3ml Syringe IV ONE (09:37)
[2017-04-29] MEDS ORDERED: Lidocaine 1%/Epinephrine 1:100000 30 ml vial IJ ONE (09:50)
[2017-04-29] MEDS ORDERED: Sodium Chloride 0.9% 1,000 ML IV SCH (10:00)
--- NOTE | 2017-04-29 10:26 | PCM.SURG1 ---
Surgeon's Initial Post Op Note - Surgeon's Notes Surgeon: adeel Weighter: [email or web address] Type of Anesthesia: General Endo Pre-Operative Diagnosis: spinal stenosis Operative Findings: severe stenosis Post-Operative Diagnosis: same Operation Performed: decompressive laminectomy L3-5 Specimen/Specimens Removed: none Estimated Blood Loss: EBL {In ML}: 150 Blood Products Given: N/A Drains Used: No Drains Post-Op Condition: Good Date of Surgery/Procedure: 04/29/17 Time of Surgery/Procedure: 08:30
[2017-04-29] MEDS ORDERED: HYDROmorphone 0.5 mg/0.5 ml ISec ONE ×3 (10:30→11:06)
[2017-04-29] MEDS: HYDROmorphone 0.5 mg/0.5 ml ISec IVP PRN ×4 (10:31→11:05)
--- NOTE | 2017-04-29 12:33 | RAD ---
PROCEDURE: Fluoroscopy HISTORY: LAMINECTOMY L3-L5 COMPARISON: None TECHNIQUE: Standard protocol for this study/examination. FINDINGS: Submitted images from the current procedure: 2.0 IMPRESSION: Total fluoroscopic time (continuous mode) utilized during the procedure: 10 seconds
[2017-04-29] MEDS: HYDROmorphone 0.2 mg/ml (25ml) 25 ML IV PRN ×2 (13:17→19:42)
[2017-04-29] MEDS: Potassium Ch 20mEq in D5-1/2NS 1,000 ML IV SCH (16:13)
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
[2017-04-30] MEDS: Potassium Ch 20mEq in D5-1/2NS 1,000 ML IV SCH ×2 (03:00→20:40)
[2017-04-30] MEDS: HYDROmorphone 0.2 mg/ml (25ml) 25 ML IV PRN (06:51)
[2017-04-30 07:48] LABS: HEMOGLOBIN 13.1 gm/dL (14.0-18.0); MEAN CELL VOLUME 92.8 fL (80.0-105.0); MEAN CORPUSCULAR HEMOGLOBIN 31.5 pg (25.0-35.0); MEAN CORPUSCULAR HGB CONC 33.9 g/dl (31.0-37.0); MEAN PLATELET VOLUME 10.2 fl (7.0-11.0); RBC 4.16 10^6/uL (3.5-6.1); RED CELL DISTRIBUTION WIDTH 13.6 % (11.5-14.5); WHITE BLOOD COUNT 8.3 10^3/ul (4.5-11.0)
[2017-04-30 07:58] LABS: ALB/GLOB RATIO 1.2 (1.1-1.8); ALBUMIN 3.9 g/dL (3.0-4.8); ALT/SGPT 34 U/L (7-56); AST/SGOT 41 U/L (15-59); BLOOD UREA NITROGEN 11 mg/dL (7-21); CALCIUM 9.6 mg/dL (8.4-10.5); GFR AFRICAN-AMERICAN > 60; GFR NON-AFRICAN AMERICAN > 60
--- NOTE | 2017-04-30 12:49 | CP.PCM.PN ---
Subjective - Date & Time of Evaluation Date of Evaluation: 04/30/17 Time of Evaluation: 12:45 - Subjective Subjective: SPINE - POD #1 Pt sitting on edge of bed. States he amb earlier. Thinks his legs feel a little better. Evidently was thrashing about and somewhat confused earlier so have d/c' d HEADING AND PRIMING TOOL SETTER. Voiding. + flatus. VSS. Afebrile. Incision clean and dry w ecchymosis at sup end and around it. Neuro grossly intact. Plan: Reg diet. Mobilize as tolerated. Oral analgesics. Hopeful rehab placement Tuesday. Objective - Vital Signs/Intake and Output Vital Signs (last 24 hours): Temp Pulse Resp BP Pulse Ox 98.6 F 90 19 117/79 94 L 04/30/17 07:57 04/30/17 07:57 04/30/17 07:57 04/30/17 07:57 04/30/17 07:57 Intake and Output: 04/30/17 04/30/17 06:59 18:59 Intake Total 50 180 Output Total 700 1200 Balance -650 -1020 - Medications Medications: Current Medications Docusate Sodium (Colace) 100 mg PO BID [facility] Last Admin: 04/30/17 09:16 Dose: 100 mg Famotidine (Pepcid) 40 mg PO HS PRN PRN Reason: GI distress Folic Acid (Folic Acid) 1 mg PO DAILY [facility] Last Admin: 04/28/17 09:14 Dose: 1 mg Hydromorphone HCl (Dilaudid) 1 mg IVP Q8H PRN PRN Reason: Pain, severe (8-10) Potassium Chloride/Dextrose/Sod Cl (Potassium Chl 20 Meq In D5-1/2ns) 1,000 mls @ 125 mls/hr IV .Q8H [facility] Last Admin: 04/30/17 03:00 Dose: 125 mls/hr Ketorolac Tromethamine (Toradol) 30 mg IVP Q6 [facility] Stop: 05/04/17 12:01 Last Admin: 04/30/17 12:02 Dose: 30 mg Morphine Sulfate (Morphine) 2 mg IVP Q4H PRN PRN Reason: Pain, severe (8-10) Last Admin: 04/28/17 19:47 Dose: 2 mg Multivitamins/Minerals (Therapeutic-M Tab) 1 tab PO 0800 [facility] Last Admin: 04/28/17 09:14 Dose: 1 tab Ondansetron HCl (Zofran Inj) 4 mg IVP ONCE PRN PRN Reason: Nausea/Vomiting Oxycodone/Acetaminophen (Percocet 5/325 Mg Tab) 1 tab PO Q6H PRN PRN Reason: Pain, moderate (4-7) Stop: 05/03/17 11:21 Pregabalin (Lyrica) 75 mg PO TID [facility] Last Admin: 04/28/17 17:35 Dose: 75 mg Thiamine HCl (Vitamin B1 Tab) 100 mg PO DAILY [facility] Last Admin: 04/28/17 09:14 Dose: 100 mg - Labs Labs: 04/30/17 07:00 04/30/17 07:00 PT 11.1 Seconds (9.9-11.8) 04/28/17 15:24 INR 1.03 (0.93-1.08) 04/28/17 15:24 APTT 25.9 Seconds (23.7-30.8) 04/28/17 15:24
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
[2017-04-30] MEDS: Oxycodone/Acetaminophen 5/325 mg Tab PO PRN ×2 (16:19→22:38)
[2017-04-30] MEDS: HYDROmorphone 0.5 mg/0.5 ml ISec IVP PRN (21:34)
[2017-05-01] MEDS: Oxycodone/Acetaminophen 5/325 mg Tab PO PRN ×4 (04:27→22:32)
[2017-05-01 08:03] LABS: MEAN CELL VOLUME 94.6 fL (80.0-105.0); MEAN CORPUSCULAR HEMOGLOBIN 31.4 pg (25.0-35.0); MEAN CORPUSCULAR HGB CONC 33.2 g/dl (31.0-37.0); MEAN PLATELET VOLUME 10.2 fl (7.0-11.0); RBC 3.5 10^6/uL (3.5-6.1); RED CELL DISTRIBUTION WIDTH 13.8 % (11.5-14.5)
[2017-05-01 08:21] LABS: ALBUMIN 3.2 g/dL (3.0-4.8); ALT/SGPT 25 U/L (7-56); AST/SGOT 35 U/L (15-59); BLOOD UREA NITROGEN 22 mg/dL (7-21); CALCIUM 9.1 mg/dL (8.4-10.5); GFR AFRICAN-AMERICAN > 60; GFR NON-AFRICAN AMERICAN > 60
[2017-05-01] MEDS: HYDROmorphone 0.5 mg/0.5 ml ISec IVP PRN ×2 (10:16→18:49)
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
[2017-05-02] MEDS: Oxycodone/Acetaminophen 5/325 mg Tab PO PRN (05:57)
[2017-05-02 06:26] LABS: HEMOGLOBIN 10.9 gm/dL (14.0-18.0); MEAN CELL VOLUME 94.5 fL (80.0-105.0); MEAN CORPUSCULAR HEMOGLOBIN 31.5 pg (25.0-35.0); MEAN CORPUSCULAR HGB CONC 33.3 g/dl (31.0-37.0); MEAN PLATELET VOLUME 10.2 fl (7.0-11.0); RBC 3.46 10^6/uL (3.5-6.1); RED CELL DISTRIBUTION WIDTH 13.7 % (11.5-14.5); WHITE BLOOD COUNT 4.5 10^3/ul (4.5-11.0)
[2017-05-02 06:59] LABS: ALB/GLOB RATIO 1.1 (1.1-1.8); ALBUMIN 3.2 g/dL (3.0-4.8); ALT/SGPT 25 U/L (7-56); AST/SGOT 31 U/L (15-59); BLOOD UREA NITROGEN 18 mg/dL (7-21); CALCIUM 9.2 mg/dL (8.4-10.5); GFR AFRICAN-AMERICAN > 60; GFR NON-AFRICAN AMERICAN > 60
[2017-05-02] MEDS ORDERED: HYDROmorphone 1 mg/ml ISec IVP PRN (08:54)
--- NOTE | 2017-05-02 13:31 | CP.PCM.PN ---
Subjective - Date & Time of Evaluation Date of Evaluation: 05/02/17 Time of Evaluation: 13:29 - Subjective Subjective: SPINE - POD #3 Pt amb w RW in room. Appears he can now stand straighter but still c/o pain in legs. VSS. Afebrile. Neuro intact. Incision clean and dry w ecchymosis present (no worse than Tuesday). Plan: OK for rehab transfer when bed available. Objective - Vital Signs/Intake and Output Vital Signs (last 24 hours): Temp Pulse Resp BP Pulse Ox 98.8 F 63 19 92/60 L 98 05/02/17 08:02 05/02/17 08:02 05/02/17 08:02 05/02/17 08:02 05/02/17 08:02 Intake and Output: 05/02/17 05/02/17 06:59 18:59 Intake Total 480 Balance 480 - Medications Medications: Current Medications Docusate Sodium (Colace) 100 mg PO BID [facility] Last Admin: 05/02/17 09:06 Dose: 100 mg Famotidine (Pepcid) 40 mg PO HS PRN PRN Reason: GI distress Folic Acid (Folic Acid) 1 mg PO DAILY [facility] Last Admin: 04/28/17 09:14 Dose: 1 mg Hydromorphone HCl (Dilaudid) 1 mg IVP Q8H PRN PRN Reason: Pain, severe (8-10) Last Admin: 05/02/17 09:06 Dose: 1 mg Ketorolac Tromethamine (Toradol) 30 mg IVP Q6 [facility] Stop: 05/04/17 12:01 Last Admin: 05/02/17 13:14 Dose: 30 mg Morphine Sulfate (Morphine) 2 mg IVP Q4H PRN PRN Reason: Pain, severe (8-10) Last Admin: 04/28/17 19:47 Dose: 2 mg Multivitamins/Minerals (Therapeutic-M Tab) 1 tab PO 0800 [facility] Last Admin: 04/28/17 09:14 Dose: 1 tab Ondansetron HCl (Zofran Inj) 4 mg IVP ONCE PRN PRN Reason: Nausea/Vomiting Oxycodone/Acetaminophen (Percocet 5/325 Mg Tab) 1 tab PO Q6H PRN PRN Reason: Pain, moderate (4-7) Stop: 05/03/17 11:21 Last Admin: 05/02/17 05:57 Dose: 1 tab Pregabalin (Lyrica) 75 mg PO TID [facility] Last Admin: 05/02/17 13:14 Dose: 75 mg Thiamine HCl (Vitamin B1 Tab) 100 mg PO DAILY [facility] Last Admin: 04/28/17 09:14 Dose: 100 mg - Labs Labs: 05/02/17 06:00 05/02/17 06:00 PT 11.1 Seconds (9.9-11.8) 04/28/17 15:24 INR 1.03 (0.93-1.08) 04/28/17 15:24 APTT 25.9 Seconds (23.7-30.8) 04/28/17 15:24
[2017-05-02 17:10] VITALS: BP 103/61; PULSE 82; RESP 20; TEMP 99.4; O2SAT 100
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
--- NOTE | 2017-05-10 13:39 | PCM.OP ---
Operative Report - Operative Report Date of Surgery/Procedure: 04/29/17 Time of Surgery/Procedure: 08:30 Surgeon: Drake Witt MD Anesthesia/Sedation: gen w endo Pre-Operative Diagnosis: Severe spinal stenosis Post-Operative Diagnosis: Severe spinal stenosis Indication for Surgery: stenosis Operative Findings: severe stenosis Procedure/Operation Description: Patient was brought to the operating room. A general anesthesia was achieved. Intravenous antibiotics were administered in spinal cord monitors were placed throughout the patient's body. Real time monitor was done by bench lay out technician by bench lay out technician in the room, remote monitor done by a physician as well. Sequential compression boots were placed at each of the patient's legs. The patient was then gently transferred onto the operation table , placed prone on a Phi frame, keeping his abdomen free from pressure anteriorly. Care was taken to protect the elbows and knees from pressure points. Steri-drape was used to seal off to patient's peroneal region from the operative field and his back was sterilely prepped and draped. Level of the incision was noted under fluoroscopy and incision made sharply in the midline. This was taken out of subcutaneous tissue using sharp and blunt dissections. Hemostasis was achieved using electrocautery. The fascia was divided and stripped laterally of the spinous processes out to the level of the facet joints. Soft tissue attachments were cleared on each side, such that we could visualize the pars on each side at each level. Hemostasis was achieved with thrombin Gelfoam powder, as well as electrocautery. A confirmatory fluoroscopic view showed that we were at the levels of L3-L4 and L4-L5 discs. A Rochelle Bone cutter and Leksell-Rongeur were then used to remove the spinous process and thin down the lamina. Laminectomy high speed drill was also used to thin down the lamina and the laminectomy carried out in the caudal to cephalic fashion, first in the midline and then out laterally to each side. There was a great deal of stenosis at the L3-L4 and L4-L5 levels, consistent with preoperative studies. A lot of lateral recess tissue thickened ligamentum as well. Foraminotomies were carried out on each side at each level until we could easily pass a Emmaus tool out the neural foramen for the out the 3,4,5 roots on each side. Hemostasis was achieved with thrombin Gelfoam powder. Another confirmatory fluoroscopic view was taken with Emmaus tools at the L3 and L5 foramen on the lengths of the decompression. The wound was copiously irrigated with antibiotic solution. Hemostasis was achieved with thrombin Gelfoam powder and a large piece of solid Gelfoam was used to cover the exposed neural elements. The wound was then closed in layers with interrupted sutures of 0- vicryl for the muscle and the fascia. 30 cc of marcaine with epinephrine was injected into the paraspinal muscles and tissues to help with postoperative pain relief. After further irrigation, subcutaneous tissue was closed in layers with interrupted sutures of 2-0 vicryl and the skin was approximated with a running subcuticular suture of 3-0 monocryl. Dermabond and sterile dressing were applied. The patient was gently transferred back onto his bed in the supine position. He was awakened and then extubated. He was taken to the recovery room in stable condition, having tolerated the procedure well. Estimated blood loss is 150 cc. He received 170 cc of crystalloid during the operation. He was actively moving all the extremities at the time of the transfer to the recovery room and no permanent electrophysiological abnormalities were noted at the completion of the case. Estimated Blood Loss: 150 cc Blood Replaced: 170 cc of crystalloid during the operation. Complications: none Discharge & Condition: stable
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
== END 2017-05-02 17:37 | DRG 757 ==
LOC: ED 16:25 → ERH 18:41 → 3RNO 21:15
PROVIDERS: ADMIT Internal Medicine; ATTEND Internal Medicine
PROC: 00NY0ZZ Release Lumbar Spinal Cord, Open Approach (ICD-10-PCS; principal; 2017-04-29 07:30)
DX: M54.16 Radiculopathy, lumbar region (principal); R56.9 Unspecified convulsions; M48.06 Spinal stenosis, lumbar region; F10.10 Alcohol abuse, uncomplicated; F17.200 Nicotine dependence, unspecified, uncomplicated; I45.10 Unspecified right bundle-branch block; M48.54XD Collapsed vertebra, not elsewhere classified, thoracic region, subsequent encounter for fracture with routine healing; M48.56XG Collapsed vertebra, not elsewhere classified, lumbar region, subsequent encounter for fracture with delayed healing; Z96.659 Presence of unspecified artificial knee joint; R26.81 Unsteadiness on feet

== ENCOUNTER 2017-05-18 15:02 | Emergency (ER) | payer OTHER ==
[2017-05-18 15:02] VITALS: BMI 24.8
[2017-05-18 15:23] VITALS: TEMP 98
[2017-05-18] MEDS ORDERED: Lidocaine 5% Patch TD STA (15:55)
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
[2017-05-18 18:06] VITALS: O2SAT 99
--- NOTE | 2017-05-18 18:29 | CT ---
PROCEDURE: CT Lumbar Spine without contrast HISTORY: back pain r/o fx COMPARISON: MRI lumbar spine without and with contrast from 04/27/[address] scan of the lumbar spine from 02/24/2017 TECHNIQUE: Axial computed tomography images were obtained of the lumbar spine without the use of intravenous contrast. Coronal and sagittal reformatted images were created and reviewed. Radiation dose: Total exam DLP = 977.23 mGy-cm. This CT exam was performed using one or more of the following dose reduction techniques: Automated exposure control, adjustment of the mA and/or kV according to patient size, and/or use of iterative reconstruction technique. FINDINGS: VERTEBRAE: There is normal alignment of the lumbar vertebral bodies. Lumbar lordosis is maintained. There is diffuse bone demineralization. There is interval progression of superior endplate compression fracture in the L5 vertebral body with a large Schmorl's node in the superior endplate. There is redemonstration of superior endplate compression fractures in the L3 and L4 vertebral bodies with mild posterior superior retropulsion at L4. There is redemonstration of compression fracture in the T12 vertebral body with progression of large superior and inferior endplate Schmorl's nodes. There are now vacuum discs at T12-L1, L1-2, L3-4 and L4-5. There has been interval laminectomies at L3 and L4. DISCS/SPINAL CANAL/NEURAL FORAMINA: L1-2: Diffuse posterior disc bulge in conjunction with mild ligamentum flavum infolding results in mild spinal canal stenosis. Mild bilateral facet arthropathy contributes to moderate neural foraminal stenosis. L2-3: Diffuse posterior disc bulge in conjunction with mild ligamentum flavum infolding results in mild spinal canal stenosis. Mild bilateral facet arthropathy contributes to moderate neural foraminal stenosis. L3-4: Status post laminectomy at L3. Diffuse posterior disc bulge and moderate bilateral facet arthropathy with resultant moderate bilateral neural foraminal stenosis. L4-5: Status post laminectomy at L4. Posterior disc bulge and moderate bilateral facet arthropathy result in severe bilateral neural foraminal stenosis. L5-S1: Mild posterior disc bulge. Moderate bilateral facet arthropathy contribute to moderate neural foraminal stenosis. PARASPINAL SOFT TISSUES: There are postsurgical changes at L3 and L4. There is ill-defined soft tissue in the laminectomy bed and paraspinous regions there is also mild fluid collection in the deep subcutaneous tissues. OTHER FINDINGS: None. IMPRESSION: 1. Status post laminectomies at L3 and L4, abnormal soft tissue in the laminectomy bed and paraspinous soft tissues. Although these findings could be related to postsurgical changes, superimposed infection cannot be excluded on noncontrast CT examination. 2. Interval progression of superior endplate compression fracture in the L5 vertebral body with a large Schmorl's node in the superior endplate. No retropulsion. 3. Redemonstration of superior endplate compression fractures in the L3 and L4 vertebral bodies with mild posterosuperior retropulsion at L4. 4. Redemonstration of compression fracture in the T12 vertebral body with a mural thermal enlargement of superior and inferior endplate Schmorl's nodes. 5. Multiple vacuum discs new since the prior examination.
--- NOTE | 2017-05-18 18:34 | CT ---
PROCEDURE: CT Thoracic Spine without contrast HISTORY: Back pain, r/o fx COMPARISON: MRI thoracic spine from 02/26/2017 TECHNIQUE: Axial computed tomography images were obtained of the thoracic spine without intravenous contrast. Coronal and sagittal reformatted images were created and reviewed. Radiation dose: Total exam DLP = 1490.58 mGy-cm. This CT exam was performed using one or more of the following dose reduction techniques: Automated exposure control, adjustment of the mA and/or kV according to patient size, and/or use of iterative reconstruction technique. FINDINGS: VERTEBRAE: There is normal alignment of the thoracic vertebral bodies. Thoracic kyphosis is maintained. There is diffuse bone demineralization. There is redemonstration of a compression fracture in the T12 vertebral body with interval increase in size of Schmorl's nodes at the superior and inferior endplate and development of vacuum discs. No retropulsion. No new acute fracture in the thoracic spine. DISCS/SPINAL CANAL/NEURAL FORAMINA: Within the limits of the CT technique, no large disc herniation, neural foraminal or spinal canal stenosis. PARASPINAL SOFT TISSUES: The paraspinous soft tissues are normal. OTHER FINDINGS: Unremarkable. IMPRESSION: 1. No new acute fracture in the thoracic spine. 2. Redemonstration of known compression deformity in the T12 vertebral body with interval increase in size of superior and inferior endplate Schmorl's nodes.
[2017-05-18 20:25] VITALS: BP 114/59; PULSE 82; RESP 16
== END 2017-05-18 20:25 | disposition home or self-care (01) ==
LOC: ED 15:02
DX: M54.9 Dorsalgia, unspecified (principal); Z98.890 Other specified postprocedural states
CPT/HCPCS: 72128; 72131; 96372; 99283; J1885

== ENCOUNTER 2017-06-30 01:07 | Emergency (ER) | payer MEDICAID, OTHER ==
[2017-06-30 01:08] VITALS: BMI 25.7
[2017-06-30 01:34] VITALS: BP 108/76; PULSE 86; RESP 18; TEMP 97.6; O2SAT 99
--- NOTE | 2017-06-30 01:39 | ED PDOC ---
Arrival/HPI - General Chief Complaint: Psychiatric Evaluation Time Seen by Provider: 06/30/17 01:34 Historian: Patient - History of Present Illness Narrative History of Present Illness (Text): 06/30/17 01:39 Ian Harris is a 56 year old male, whose past medical history includes alcohol abuse, chronic back pain, status post decompressive laminectomy on 04/29/2017, who presents to the Emergency department for possible suicidal ideation tonight. Patient denies any suicidal ideation, depression, or homicidal ideation , states he just wants to return to his longterm. Patient states he feels fine currently. Patient denies any fever, chills, chest pain, shortness of breath, nausea, vomiting, diarrhea, urinary symptoms, back pain, neck pain, headache, dizziness, or any other complaints. Time/Duration: Other (tonight) Symptom Onset: Gradual Symptom Course: Unchanged Activities at Onset: Light Past Medical History - Provider Review Nursing Documentation Reviewed: Yes - Infectious Disease Hx of Infectious Diseases: None - Neurological Hx Seizures: Yes - Musculoskeletal/Rheumatological Hx Back Pain: Yes Hx Falls: Yes Hx Unsteady Gait: Yes - Psychiatric Hx Anxiety: Yes Hx Bipolar Disorder: No Hx Depression: No Hx Post Traumatic Stress Disorder: No Hx Schizophrenia: No Hx Substance Use: No - Surgical History Other/Comment: Right knee surgery. Back surgery in February. - Anesthesia Hx Anesthesia Reactions: No Hx Malignant Hyperthermia: No Family/Social History - Physician Review Nursing Documentation Reviewed: Yes Family/Social History: Unknown Family HX Smoking Status: Heavy Smoker > 10 Cigarettes Daily Hx Alcohol Use: Yes (DAILY) Hx Substance Use: No Allergies/Home Meds Allergies/Adverse Reactions: Allergies No Known Allergies Allergy (Verified 07/01/17 08:44) Review of Systems - Physician Review All systems were reviewed & negative as marked: Yes - Review of Systems Constitutional: Normal. absent: Fevers Eyes: Normal ENT: Normal Respiratory: Normal. absent: SOB, Cough Cardiovascular: Normal. absent: Chest Pain Gastrointestinal: Normal. absent: Abdominal Pain, Diarrhea, Nausea, Vomiting Genitourinary Male: Normal. absent: Dysuria, Frequency, Hematuria, Urinary Output Changes Musculoskeletal: Normal. absent: Back Pain, Neck Pain Skin: Normal. absent: Rash Neurological: Normal. absent: Headache, Dizziness Endocrine: Normal Hemo/Lymphatic: Normal Psychiatric: Normal Physical Exam Vital Signs Reviewed: Yes Vital Signs Temp Pulse Resp BP Pulse Ox 06/30/17 01:32 97.6 F 86 18 108/76 99 Temperature: Afebrile Blood Pressure: Normal Pulse: Regular Respiratory Rate: Normal Appearance: Positive for: Well-Appearing, Non-Toxic, Comfortable Pain Distress: None Mental Status: Positive for: Alert and Oriented X 3 - Systems Exam Head: Present: Atraumatic, Normocephalic Pupils: Present: PERRL Extroacular Muscles: Present: EOMI Conjunctiva: Present: Normal Mouth: Present: Moist Mucous Membranes Neck: Present: Normal Range of Motion Respiratory/Chest: Present: Clear to Auscultation, Good Air Exchange. No: Respiratory Distress, Accessory Muscle Use Cardiovascular: Present: Regular Rate and Rhythm, Normal S1, S2. No: Murmurs Abdomen: Present: Normal Bowel Sounds. No: Tenderness, Distention, Peritoneal Signs Back: Present: Normal Inspection Upper Extremity: Present: Normal Inspection. No: Cyanosis, Edema Lower Extremity: Present: Normal Inspection. No: Edema Neurological: Present: GCS=15, CN II-XII Intact, Speech Normal Skin: Present: Warm, Dry, Normal Color. No: Rashes Psychiatric: Present: Alert, Oriented x 3, Normal Insight, Normal Concentration Medical Decision Making ED Course and Treatment: 06/30/17 01:39 Impression: 56 year old male brought in for possible suicidal ideation as per EMS. Pt denies any suicidal ideation. Differential Diagnosis included but are not limited to: depression Plan: -- Reassess and disposition Prior Visits: Notes and results from previous visits were reviewed. On 06/01/2017, pt was seen in the Emergency department for back pain. Pt was d/ c home. Progress Notes: - Scribe Statement The provider has reviewed the documentation as recorded by the [place] Provider Scribe Attestation: All medical record entries made by the [place] were at my direction and personally dictated by me. I have reviewed the chart and agree that the record accurately reflects my personal performance of the history, physical exam, medical decision making, and the department course for this patient. I have also personally directed, reviewed, and agree with the discharge instructions and disposition. Disposition/Present on Arrival - Present on Arrival Any Indicators Present on Arrival: No History of DVT/PE: No History of Uncontrolled Diabetes: No Urinary Catheter: No History of Decub. Ulcer: No History Surgical Site Infection Following: None - Disposition Have Diagnosis and Disposition been Completed?: Yes Diagnosis: Depression Disposition: HOME/ ROUTINE Disposition Time: 01:57 Condition: GOOD Discharge Instructions (ExitCare): Depression (DC) Forms: [facility] ([place])
== END 2017-06-30 02:13 | disposition home or self-care (01) ==
LOC: ED 01:07
DX: F32.9 Major depressive disorder, single episode, unspecified (principal)